=== PATIENT | male | born 1995 | race Caucasian/White ===

== ENCOUNTER 2021-01-17 20:03 | Emergency (ER) | payer OTHER ==
[~2021-01-17] VITALS: Ht 172.7 cm; Wt 56.7 kg
[2021-01-17] MEDS ORDERED: ONDANSETRON HCL4 M2 PO (21:14)
[2021-01-17 21:44] VITALS: BP 128/47
== END 2021-01-17 21:44 | disposition home or self-care (01) ==
LOC: ER 20:03
PROVIDERS: Nurse Practitioner
DX: U07.1 COVID-19 (principal); R50.9 Fever, unspecified